=== PATIENT | female | born 1950 | race Caucasian/White ===

== ENCOUNTER → 2016-12-12 | Outpatient (CLI) | payer MEDICARE ==
[~2016-12-12] MED LIST: ALBUTEROL17 GM INH; ALBUTEROL2.5 MG/3 M NEB; ALPRAZOLAM1 MG PO; ASPIRIN81 MG PO; COREG6.25 MG PO; DULERA 200 MCG/13 GM INH; FLONASE ALLERG9.9 ML; HYDROCODON-ACE1 EAC5 PO; LIPITOR20 MG PO; LISINOPRIL2.5 MG PO; NITROSTAT0.4 MG SL; SPIRIVA18 MCG INH; TIZANIDINE HCL4 M1 PO; TYL325 PO; ZANTAC150 MG PO
--- NOTE | ~2016-12-12 | CT2 ---
[facility] A Service of [facility] RADIOLOGY TEXT RESULTS PATIENT: MARE ESPARZA LOCATION: [facility] : 52 UNIT #: [id number] AGE: [address]: Dontrell Knox MD SEX: F ORDER DR: [id number] [facility] [address] [place], [place] [address] [id number] O MR#: [id number] Acc #: [id number] NAME: MARE ESPARZA : 1950 SEX: F STUDY DATE/TIME: 12/12/2016 16:26 UNIT: [facility] ROOM: STUDY DESCRIPTION: CT Abd and Pelv W Cont Attending Physician: Dontrell Knox M.D. Referring Physician: Dontrell Knox M.D. Ordering Physician: Dontrell Knox M.D. Primary Care Physician: Dontrell Knox M.D. MEDICAL IMAGING REPORT This report is preliminary unless electronic signature is present EXAM CT abdomen and pelvis with contrast INDICATIONS Liver mass. Epigastric region pain for the past 3-4 months. Unexplained weight loss of 50 pounds in the past 6 months. PROCEDURE Contrast-enhanced CT of the abdomen and pelvis. This CT exam was performed with one or more of the following radiation dose reduction techniques: automatic control, adjustment of mA and/or kV according to patient size, and iterative reconstruction. COMPARISON None FINDINGS ABDOMEN WITH CONTRAST: Included lung bases are clear. There is a 2 cm hypoenhancing lesion in the left hepatic lobe. It measures slightly greater than simple fluid attenuation and is indeterminate on this study. The spleen adrenal glands pancreas gallbladder unremarkable. The bowel loops are nondilated. No abdominal adenopathy. PELVIS WITH CONTRAST: No pelvic mass or fluid. Moderately prominent vessels in the left hemipelvis. No aggressive appearing bone lesion. IMPRESSION 1. No acute findings. 2. Moderate colonic stool. 3. There is a 2 cm indeterminate lesion in the left hepatic lobe. It may represent a cyst but is indeterminate on this study. Would be better characterized by a multiphase MRI or liver protocol CT. [facility] A Service of [facility] RADIOLOGY TEXT RESULTS PATIENT: MARE ESPARZA LOCATION: [facility] : 52 UNIT #: [id number] AGE: [address]: Dontrell Knox MD SEX: F ORDER DR: 4. Otherwise no convincing evidence for malignancy in the abdomen or pelvis. Dictated by... John Domingo M.D. THIS IS AN ELECTRONICALLY VERIFIED REPORT John Domingo M.D. at 12/17/2016 7:14 AM BRENDEN/wilfredo TD: 12/13/2016 07:31 JOB #: [id number] MEDICAL IMAGING REPORT Page 1 of 1 COPY
[2016-12-12 16:01] LABS: POC - CREATININE 0.61 mg/dL (0.44-1.03); POC - GFR >60.0 mL/min (>60)
== END | disposition home or self-care (01) ==
LOC: CCAT 12-11 16:40
PROVIDERS: Family Medicine
DX: R16.0 Hepatomegaly, not elsewhere classified (principal); K76.89 Other specified diseases of liver; Z68.24 Body mass index [BMI] 24.0-24.9, adult; Z79.891 Long term (current) use of opiate analgesic
CPT/HCPCS: 74177; 82565; Q9967

== ENCOUNTER → 2017-01-09 | Outpatient (CLI) | payer MEDICARE ==
--- NOTE | ~2017-01-09 | CT6 ---
[facility] A Service [facility] RADIOLOGY TEXT RESULTS PATIENT: MARE ESPARZA LOCATION: [facility] : 51 UNIT #: [id number] AGE: [address]: Floyd Bucio MD SEX: F ORDER DR: [id number] [facility] [address] [place], [place] [address] [id number] O MR#: [id number] Acc #: [id number] NAME: MARE ESPARZA : 1950 SEX: F STUDY DATE/TIME: 01/09/2017 8:19 UNIT: [facility] ROOM: STUDY DESCRIPTION: CT Abdomen WWo Cont Attending Physician: Floyd Bucio M.D. Referring Physician: Floyd Bucio M.D. Ordering Physician: Floyd Bucio M.D. Primary Care Physician: Dontrell Knox M.D. MEDICAL IMAGING REPORT This report is preliminary unless electronic signature is present EXAM CT abdomen without and with contrast. INDICATION Liver mass. Indeterminate liver lesion on previous CT. Further characterization. Epigastric to left-sided abdominal pain over the past [address] of the abdomen. Multiphase postcontrast CT of the abdomen attention to the liver. This CT exam was performed with one or more of the following radiation dose reduction techniques: automatic exposure control, adjustment of mA and/or kV according to patient size, and iterative reconstruction. COMPARISON 12/12/2016 FINDINGS ABDOMEN WITHOUT CONTRAST: Included lung bases are clear. There are a few tiny radiodense stones in the gallbladder. No radiodense calculus in the included portions of the kidneys. ABDOMEN WITH CONTRAST: Liver has normal size and morphology. 1.6 cm cyst in the left hepatic lobe segment 2. There is a 6 mm cyst at the junction of segments 4a and 8. No worrisome enhancing liver lesion. Spleen, kidneys, adrenal glands, pancreas are unremarkable. The included bowel loops are nondilated. No aggressive appearing bone lesions. IMPRESSION 1. Two hepatic cysts. No worrisome enhancing liver mass. [facility] A Service [facility] RADIOLOGY TEXT RESULTS PATIENT: MARE ESPARZA [facility] #: [id number] : 52 UNIT #: [id number] AGE: [address]: Floyd Bucio MD SEX: F ORDER DR: 2. No acute findings are seen in the abdomen. Dictated by... John Domingo M.D. THIS IS AN ELECTRONICALLY VERIFIED REPORT John Domingo M.D. at 01/09/2017 10:22 PM LYNDAD/donna TD: 01/09/2017 17:10 JOB #: [id number] MEDICAL IMAGING REPORT Page 1 of 1 COPY
== END | disposition home or self-care (01) ==
LOC: CCAT 07:10
DX: K76.9 Liver disease, unspecified (principal)
CPT/HCPCS: 74170; Q9967

== ENCOUNTER → 2017-02-14 | Day surgery (SDC) | payer MEDICARE ==
--- NOTE | ~2017-02-14 | OR ---
Unit #: [id number] #: [id number] Patient: MARE ESPARZA [id number] [address] [place], [place] [address] [id number] O MR#: [id number] NAME: MARE ESPARZA ROOM: Date of Procedure: 02/14/2017 Admission Date: 02/14/2017 Surgeon: Suman Finney M.D. : 1950 Attending Physician: Suman Finney M.D. Referring Physician: Suman Finney M.D. Primary Care Physician: Dontrell Knox M.D. OPERATIVE REPORT PROCEDURE PERFORMED Colonoscopy with snare polypectomy, submucosal injection, as well as hemoclip application. INDICATIONS FOR PROCEDURE A 66-year-old female with Cologuard positive also with significant weight loss undergoing colonoscopy for evaluation. MEDICATIONS Monitored anesthesia. POSTOPERATIVE FINDINGS 1. Large polyp in the ascending colon, 1.5 cm flat, removed in piecemeal solution. Two hemoclips were placed, the area was tattooed for future reference. 2. Small 5 mm polyp in ascending colon, snared and sent for histopathology. 3. Transverse colon polyp, 5 to 6 mm, snared and sent for histopathology. 4. Rectosigmoid polyp x2, snared and sent for histopathology. PLAN Follow up on pathology report. Repeat colonoscopy in 1 to 2 years. DESCRIPTION OF PROCEDURE The patient was explained of the procedure, risks, and benefits along with the risks and benefits of anesthesia. She was brought to the endoscopy room. Propofol anesthesia was given. Rectal exam was done, which was normal. Colonoscope was lubricated, passed up the rectum, advanced under direct vision all the way to the cecum. Cecum was identified by ileocecal valve and appendiceal orifice. I then started to pull the scope out carefully looking. Multiple polyps were seen as described. I retroflexed in the rectum, small hemorrhoids seen. The scope was gently pulled out. She tolerated it well. Dictated by... Vargas Haynes/shahzad TD: 02/15/2017 06:22 JOB #: [id number] Unit #: [id number] #: [id number] Patient: MARE ESPARZA CC: Floyd Bucio M.D. OPERATIVE REPORT Page 1 of 1 X Suman Finney MD PROCEDURE OPERATIVE NOTE
== END | disposition home or self-care (01) ==
LOC: COPS 09:35
DX: D12.0 Benign neoplasm of cecum (principal); K63.5 Polyp of colon; K64.9 Unspecified hemorrhoids; R63.4 Abnormal weight loss; K21.9 Gastro-esophageal reflux disease without esophagitis; J44.9 Chronic obstructive pulmonary disease, unspecified; Z99.81 Dependence on supplemental oxygen; F17.200 Nicotine dependence, unspecified, uncomplicated; I51.9 Heart disease, unspecified; Z79.899 Other long term (current) drug therapy; Z98.51 Tubal ligation status; Z98.890 Other specified postprocedural states
CPT/HCPCS: 88305; J0171